=== PATIENT | male | born 1975 | race Caucasian/White ===

== ENCOUNTER 2018-02-04 08:57 | Emergency (ER) | payer SELFPAY ==
[~2018-02-04] VITALS: Ht 160 cm; Wt 70.3 kg
[~2018-02-04 08:57] MED LIST: HYDR1TAB66 PO; TRAM50TA2 PO
[2018-02-04] MEDS: KETOROLAC 60 MG/2 ML VIAL IM STA (10:47)
--- NOTE | 2018-02-04 10:52 | ED Hip Pain/Injury ---
General Chief Complaint: Hip/Pelvic Problems Stated Complaint: RT KNEE AND RT HIP PAIN Nursing Triage Note: ARRIVED VIA AMB WITH COMPLAINTS OF RIGHT KNEE PAIN AND RIGHT HIP PAIN SINCE FALLING LAST FRIDAY WHEN IT SNOWED HITTING HIS KNEE THEN HIS HIP ON THE BUMPER OF HIS TRUCK. Source: patient Exam Limitations: no limitations History of Present Illness Date Seen by Provider: Feb 04, 2018 Time Seen by Provider: 10:32 Initial Comments Here with report of right knee and right hip pain. Approximately 10 days ago he slipped while moving firewood out of a truck. He was standing on the bumper on the snowy day and slipped and came down on his right knee and hip on the bumper. He had pain since. It's come and gone over time but seems to be getting worse over the last couple of days. He does work 10 hour shifts at work and this is probably exacerbating his son. Does have history of right knee problems and used to wear her brace but the brace got damaged and he is to get a new one. He is working on that. Has not taken anything for the pain. Pain is in the right hip and groin area and then the anterior right knee around the kneecap. Does have some effusion. Timing/Duration: week, getting worse, changing over time Severity: moderate Location: hip (R), other (right knee) Method of Injury: direct blow, fell Modifying Factors: Improves With Immobilization; Worse With Movement Associated Symptoms: groin pain, trouble walking (sometimes his knee gives out on the right) Allergies and Home Medications Allergies Coded Allergies: No Known Drug Allergies (Unverified , 01/07/12) Home Medications No Active Prescriptions or Reported Meds Patient Home Medication List Home Medication List Reviewed: Yes Review of Systems Constitutional: see HPI; No fever, No weakness Respiratory: no symptoms reported Cardiovascular: no symptoms reported Musculoskeletal: see HPI, joint pain, joint swelling, muscle pain, muscle stiffness Skin: no symptoms reported; No change in color, No lesions Past Xmhttjj-Domjcj-Ucqsqh Hx Past Med/Social Hx: Reviewed Nursing Past Med/Soc Hx Patient Social History Alcohol Use: Occasionally Uses Recreational Drug Use: No Smoking Status: Never a Smoker Recent Foreign Travel: No Contact w/Someone Who Travel: No Recent Infectious Disease Expo: No Recent Hopitalizations: No Past Medical History Surgeries: Yes Orthopedic Respiratory: No Cardiac: No Neurological: No Reproductive Disorders: No Genitourinary: No Gastrointestinal: No Musculoskeletal: No Endocrine: No HEENT: No Cancer: No Did You Recieve Any Treatments: No Psychosocial: No Integumentary: No Blood Disorders: No Family Medical History Reviewed Nursing Family Hx Physical Exam Vital Signs Vital Signs - First Documented 02/04/18 09:04 Temp 98.0 Pulse 85 Resp 16 Pulse Ox 99 Capillary Refill : Less Than 3 Seconds Height, Weight, BMI Height: 5'3.00" Weight: 155lbs. oz. 70.525631az; BMI Method:Stated General Appearance: No Apparent Distress, WD/WN Cardiovascular: Regular Rate, Rhythm, No Murmur Respiratory: Lungs Clear, Normal Breath Sounds Extremity: No Pedal Edema, Pelvis Stable, Other (and swelling to the right knee around the kneecap indicating effusion. Mild tenderness to the right groin area and along the hamstring and to a lesser extent laterally.) Neurologic/Psychiatric: Alert, Oriented x3 Skin: Normal Color, Warm/Dry Progress/Results/Core Measures Results/Orders My Orders Orders - SARA DONG MD Knee, Right, 3 Views (02/04/18 10:41) Pelvis With Right Hip 2-3views (02/04/18 10:41) Ketorolac Injection (Toradol Injection) (02/04/18 10:42) Vital Signs/I&O 02/04/18 09:04 Temp 98.0 Pulse 85 Resp 16 B/P (MAP) Pulse Ox 99 Progress Progress Note : Progress Note Seen and evaluated. X-ray right hip and pelvis as well as right knee. Toradol 60 mg IM. Monitor patient. 1154: I did discuss with the patient regarding results of hip. Pelvis x-ray concerning for a femoral acetabular impingement syndrome. We did consider MRI. He would like to do that outpatient and I will give him information regarding that. He is finding a local doctor and wants to do it in that respect. After discussion with radiologist, think this is certainly okay to do. I did encourage the patient strongly to get follow-up and further evaluation. Discharged home with return precautions. Patient verbalize understanding instructions and agreement with plan. Diagnostic Imaging Diagonstic Imaging: Xray Plain Films/CT/US/NM/MRI: knee Comments VIA [facility]. [place], [place] NAME: NILES LE [facility] REC#: [id number] PT STATUS: REG ER : 1975 PHYSICIAN: SARA DONG MD ADMIT DATE: 02/04/18/ER Draft Date of Exam:02/04/18 KNEE, RIGHT, 3 VIEWS EXAMINATION: Right knee at 1118 hours. INDICATION: Right knee pain. 3 views were obtained. There are no prior studies available for comparison. FINDINGS: There is no fracture, dislocation or acute bony abnormality evident. There is moderate narrowing of the medial compartment of the knee joint and mild narrowing of the patellofemoral space. Lateral compartment is fairly well-maintained. The soft tissues are unremarkable. IMPRESSION: 1. There is no evidence for an acute bony abnormality. 2. If there is clinical concern regarding internal derangement, then MRI would be recommended for further study. Dictated on workstation # [id number] Dict: 02/04/18 1103 Trans: 02/04/18 1114 [id number] Interpreted by: SHARON PARKER MD Electronically signed by: Diagonstic Imaging: Xray Plain Films/CT/US/NM/MRI: pelvis, hip Comments VIA [facility]. [place], [place] NAME: NILES LE [facility] REC#: [id number] PT STATUS: REG ER : 1975 PHYSICIAN: SARA DONG MD ADMIT DATE: 02/04/18/ER Draft Date of Exam:02/04/18 PELVIS WITH RIGHT HIP 2-3VIEWS EXAMINATION: Pelvis and right hip. INDICATION: Fell. A single AP view of the pelvis and AP and lateral views of the right hip were obtained. There are no prior studies available for comparison. FINDINGS: There is no fracture, dislocation, or acute bony abnormality evident. The hip joints are fairly well maintained. There is mild sclerosis of the sacroiliac joints. The lateral view does show a focal bulge of the contour of the cortex of the lateral aspect of the right femoral neck. This finding has been associated with femoroacetabular instability (GLADIS). If further imaging of the right hip is desired, then MRI would be recommended. The soft tissues are unremarkable. IMPRESSION: 1. There is no evidence for an acute bony abnormality. 2. The appearance of the right femoral neck does raise the question of femoroacetabular instability. Recommendations as above. Dictated on workstation # [id number] Dict: 02/04/18 1105 Trans: 02/04/18 1136 [id number] Interpreted by: SHARON PARKER MD Electronically signed by: Reviewed: Discussed w/Radiologist Departure Impression Primary Impression: Femoral acetabular impingement Additional Impression: Right knee injury Qualified Codes: S89.91XA - Unspecified injury of right lower leg, initial encounter Disposition: HOME, SELF-CARE Condition: Stable Departure-Patient Inst. Decision time for Depature: 11:56 Referrals: NO,LOCAL PHYSICIAN (PCP/Family) Primary Care Physician Patient Instructions: Groin Strain (DC), Knee Sprain (DC) Add. Discharge Instructions: All discharge instructions reviewed with patient and/or family. Voiced understanding. You have x-ray findings concerning for femoral acetabular impingement syndrome and this needs further evaluation at some point including the possibility of MRI. You can set this up through your local physician. You may use the physician list given or other options but it is important that he find a primary care doctor. You may use ibuprofen 600 mg every 8 hours as needed for pain. You may use Tylenol/acetaminophen 1000 mg every 8 hours as needed for pain. You may use topical sports cream such as icy hot with lidocaine or Aspercreme with lidocaine or similar items. Return for worse pain, fever, vomiting, weakness, breathing problems, walking problems or other concerns as needed. Scripts No Active Prescriptions or Reported Meds Work/School Note: Local Medical Staff Listing, Work Release Form Date Seen in the Emergency Department: Feb 04, 2018 Return to Work: Feb 09, 2018 Restrictions: No Restrictions SARA DONG MD Feb 04, 2018 10:52
--- NOTE | 2018-02-04 11:15 | Diagnostic Imaging Report ---
EXAMINATION: Right knee at 1118 hours. INDICATION: Right knee pain. 3 views were obtained. There are no prior studies available for comparison. FINDINGS: There is no fracture, dislocation or acute bony abnormality evident. There is moderate narrowing of the medial compartment of the knee joint and mild narrowing of the patellofemoral space. Lateral compartment is fairly well-maintained. The soft tissues are unremarkable. IMPRESSION: 1. There is no evidence for an acute bony abnormality. 2. If there is clinical concern regarding internal derangement, then MRI would be recommended for further study. Dictated by: Dictated on workstation # [id number]
--- NOTE | 2018-02-04 11:37 | Diagnostic Imaging Report ---
EXAMINATION: Pelvis and right hip. INDICATION: Fell. A single AP view of the pelvis and AP and lateral views of the right hip were obtained. There are no prior studies available for comparison. FINDINGS: There is no fracture, dislocation, or acute bony abnormality evident. The hip joints are fairly well maintained. There is mild sclerosis of the sacroiliac joints. The lateral view does show a focal bulge of the contour of the cortex of the lateral aspect of the right femoral neck. This finding has been associated with femoroacetabular instability (GLADIS). If further imaging of the right hip is desired, then MRI would be recommended. The soft tissues are unremarkable. IMPRESSION: 1. There is no evidence for an acute bony abnormality. 2. The appearance of the right femoral neck does raise the question of femoroacetabular instability. Recommendations as above. Dictated by: Dictated on workstation # [id number]
[2018-02-04 12:05] VITALS: BP 137/97
== END 2018-02-04 12:05 | disposition home or self-care (01) ==
LOC: EDUNIT# 08:57 → ER 08:59
DX: S89.91XA Unspecified injury of right lower leg, initial encounter (principal); M25.851 Other specified joint disorders, right hip; V48.6XXA Car passenger injured in noncollision transport accident in traffic accident, initial encounter
CPT/HCPCS: 73562